=== PATIENT | female | born 1955 ===

== ENCOUNTER 2024-09-07 10:29 | Outpatient (CLI) | payer OTHER | END 2024-09-07 10:36 | disposition home or self-care (01) | LOC: SONOGRAMA 10:29 | PROVIDERS: ATTEND Physical Medicine & Rehabilitation | DX: M54.2 Cervicalgia (principal); M75.101 Unspecified rotator cuff tear or rupture of right shoulder, not specified as traumatic; Z96.611 Presence of right artificial shoulder joint; M54.50 Low back pain, unspecified; M54.12 Radiculopathy, cervical region ==